=== PATIENT | female | born 1955 | race Hispanic/Latino ===

== ENCOUNTER 2021-04-21 09:00 | Outpatient (CLI) | payer BC ==
--- NOTE | 2021-04-21 10:13 | Mammography Report ---
DEXA BONE DENSITY SCAN INDICATION / CLINICAL INFORMATION: Z78.0 POSTMENOPAUSAL. 66 years Female COMPARISON: None available. LUMBAR SPINE, L1-L4: - Bone mineral density (BMD) = 1.012 g/cm2. - T-score = -0.3 - Z-score = 1.4 Change (%) since most recent prior (if available): None available. LEFT HIP, NECK : - Bone mineral density (BMD) = 0.743 g/cm2. - T-score = -1.0 - Z-score = 0.5 Change (%) since most recent prior (if available): None available. IMPRESSION: 1. WHO Classification: Normal bone density. Fracture Risk: Not Increased. Note: 10-Year Fracture Risk (FRAX) not reported. This DEXA unit lacks FRAX functionality. BMD Reporting Guidelines (ISCD, 2015) BMD Reporting in Postmenopausal Women and in Men Age 50 and Older - T-scores are preferred. - The WHO densitometric classification is applicable. BMD Reporting in Females Prior to Menopause and in Males Younger Than Age 50 - Z-scores, not T-scores, are preferred. This is particularly important in children. - A Z-score of -2.0 or lower is defined as below the expected range for age, and a Z-score above -2.0 is within the expected range for age. - Osteoporosis cannot be diagnosed in men under age 50 on the basis of BMD alone. - The WHO diagnostic criteria may be applied to women in the menopausal transition. http://www.iscd.org/official-positions/6408-txcz-oxbvpnhi-positions-adult/ Signer Name: Angely Oden MD Signed: 04/21/2021 10:09 AM Workstation Name: [email or web address]
== END 2021-04-21 09:01 | disposition home or self-care (01) ==
LOC: SPVWC 09:00
PROVIDERS: ATTEND Family Medicine
DX: Z13.820 Encounter for screening for osteoporosis (principal); Z78.0 Asymptomatic menopausal state
CPT/HCPCS: 77080

== ENCOUNTER 2022-05-18 09:10 | Outpatient (CLI) | payer MEDICARE ==
--- NOTE | 2022-05-21 08:15 | Mammography Report ---
DIGITAL SCREENING MAMMOGRAM WITH CAD, 05/18/2022 CLINICAL INFORMATION / INDICATION: Routine screening mammography. TECHNIQUE: Digital bilateral 2D mammography was obtained in the craniocaudal and mediolateral obliqu e projections. This examination was interpreted with the benefit of Computer-Aided Detection analysis . COMPARISON: None available. FINDINGS: Breast Density: The breasts are almost entirely fatty. No dominant mass, suspicious calcifications, or architectural distortion in either breast. Bilateral saline retropectoral breast implants are present. IMPRESSION: No mammographic evidence of malignancy. Follow up recommendation: Routine yearly screening mammogram. BI-RADS Category 2: BENIGN. A "normal" or negative report should not discourage follow up or biopsy of a clinically significant f inding. A written summary of these findings will be mailed to the patient. The patient will be entered into a mammography reporting system which will generate a reminder letter for the patient's next appointmen t at the appropriate interval. The [employer] recommends yearly mammograms starting at age 40 and continuing as l sridhar as a woman is in good health. Breast MRI is recommended for women with an approximate 20-25% or greater lifetime risk of breast cancer, including women with a strong family history of breast or ova kenji cancer or who have been treated for Hodgkin's disease. Signer Name: Octavia Perez MD Signed: 05/21/2022 8:11 AM Workstation Name: [employer]
== END 2022-05-18 09:11 | disposition home or self-care (01) ==
LOC: MAMMO 09:10
PROVIDERS: ATTEND Family Medicine
DX: Z12.31 Encounter for screening mammogram for malignant neoplasm of breast (principal)
CPT/HCPCS: 77067